=== PATIENT | male | born 1960 | race Two or more races ===

== ENCOUNTER 2024-12-14 13:05 | Inpatient (IN) | payer MEDICARE, OTHER ==
[~2024-12-14] VITALS: Ht 182.9 cm; Wt 115.2 kg
--- NOTE | 2024-12-14 13:28 | ECG ---
[facility] Test Date: 2024-12-14 Test Time: 13:27:03 Pat Name: NIMESH CALDERÓN Department: ER Room: 0273T Gender: M Rn Community: [place] : 1960 Requested By: IVETH DEL ROSARIO Order Number: [id number] Reading MD: Sang Iriazrry Measurements Intervals [place] Rate: 61 P: -18 MN: 152 QRS: -2 QRSD: 120 T: 65 QT: 434 QTc: 438 Interpretive Statements Sinus rhythm Nonspecific intraventricular conduction delay Inferior infarct, old Abnormal lateral Q waves Electronically Signed On 12-17-2024 20:55:54 PDT by Sang Irizarry Please click the below link to view image of tracing.
--- NOTE | 2024-12-14 13:41 | ED.PDOC ---
SOB-HPI HPI Comments 64 y/o M, with a history of AFIB on Eliquis, asthma, CKF, DM, HTN, and aortic heart valve replacement, presents with c/o intermittent shortness of breath for the past 2 hours and chest heaviness. Patient reports on sudden and unprovoked onset of symptom. He denies any palpitations, cough, wheezing, congestion, fever, chills, or other associated symptoms or modifying factors, currently. Patient further informs of recent AFIB diagnosis and need for a pacemaker following recent hospital visit in [place], [place], and another facility in [place], [place] 2x days ago and 1x week ago, respectively. States he does not feel comfortable going home. Chief Complaint: Shortness of Breath Time Seen by MD: 13:25 Primary Care Provider: OUT OF AREA Reviewed notes: Nurses Notes, Medications, Allergies Information Source: Patient Mode of Arrival: Ambulatory Severity: Moderate Timing: Hours Duration: Intermittent Context: Spontaneous Onset Past Medical History PAST MEDICAL HISTORY: AFIB (on Eliquis ), Asthma, CKF, DM, HTN Surgical History (Other): aortic heart valve replacement left-knee surgery All Other Systems: Reviewed and Negative (Comprehensive systems review obtained and negative except for what is stated in the HPI.) Physical Exam General Appearance: No Apparent Distress, Normal HEENT: Normal ENT Inspection, Pharynx Normal, TMs Normal Neck: Full Range of Motion, Non-Tender, Normal, Normal Inspection Respiratory: Chest Non-Tender, Lungs Clear, No Accessory Muscle Use, No Respiratory Distress, Normal Breath Sounds Cardiovascular: No Edema, No JVD, No Murmur, No Gallop, Normal Peripheral Pulses, Regular Rate/Rhythm Breast Exam: Deferred Gastrointestinal: No Organomegaly, Non Tender, No Pulsatile Mass, Normal Bowel Sounds, Soft Genitalia: Deferred Pelvic: Deferred Rectal: Deferred Extremities: No calf tenderness, Normal capillary refill, Normal inspection, Normal range of motion, Non-tender, No pedal edema Musculoskeletal : Apperance: Normal Neurologic: Alert, pop singer II-XII nml as Tested, No Motor Deficits, Normal Affect, Normal Mood, No Sensory Deficits Cerebellar Function: NOT DONE Reflexes: NOT DONE Skin: Dry, Normal Color, Warm Lymphatic: No Adenopathy EKG EKG : Pulse Rate (adult): 61 [place]: Normal Cardiac Rhythm: NSR Block: None Hypertrophy: None ST: Normal Was a procedure done? Was a procedure done?: No Differential Dx Differential Diagnosis: Anxiety, Asthma, Bronchitis, Myocardial infarction, Pneumonia, Pulmonary Embolism, URI, Other (viral syndrome) X-Ray, Labs, Meds, VS Vital Signs Date Time Temp Pulse Resp B/P (MAP) Pulse Ox O2 Delivery O2 Flow Rate FiO2 12/14/24 13:41 61 12/14/24 13:27 61 12/14/24 13:20 98.3 62 16 109/69 (82) 95 98.3 Lab Test 12/14/24 13:31 Range/Units White Blood Count 9.0 4.4-10.8 10^3/uL Red Blood Count 5.41 4.5-5.90 10^6/uL Hemoglobin 15.3 13.5-17.5 g/dL Hematocrit 47.7 41.0-53.0 % Mean Corpuscular Volume 88.2 80.0-100.0 fL Mean Corpuscular Hemoglobin 28.3 28.0-32.0 pg Mean Corpuscular Hemoglobin Concent 32.1 32.0-36.0 g/dL Red Cell Distribution Width 15.6 H 11.8-14.3 % Platelet Count 147 140-450 10^3/uL Mean Platelet Volume 8.5 6.9-10.8 fL Neutrophils (%) (Auto) 65.2 37.0-80.0 % Lymphocytes (%) (Auto) 26.3 10.0-50.0 % Monocytes (%) (Auto) 7.2 0.0-12.0 % Eosinophils (%) (Auto) 0.8 0.0-7.0 % Basophils (%) (Auto) 0.5 0.0-2.0 % Neutrophils # (Auto) 5.9 1.6-8.6 10 ^3/uL Lymphocytes # (Auto) 2.4 0.4-5.4 10 ^3/uL Monocytes # (Auto) 0.6 0-1.3 10 ^3/uL Eosinophils # (Auto) 0.1 0-0.8 10 ^3/uL Basophils # (Auto) 0 0-0.2 10 ^3/uL Nucleated Red Blood Cells 0.2 % Sodium Level 141 136-145 mmol/L Potassium Level 4.2 3.5-5.1 mmol/L Chloride Level 107 98-107 mmol/L Carbon Dioxide Level 27 20-31 mmol/L Anion Gap 7 5-15 Blood Urea Nitrogen 19 9-23 mg/dL Creatinine 1.12 0.700-1.30 mg/dL Glomerular Filtration Rate Calc 72 >90 mL/min BUN/Creatinine Ratio 17.0 10.0-20.0 Serum Glucose 186 H 74-106 mg/dL Calcium Level 10.0 8.7-10.4 mg/dL Phosphorus Level 3.2 2.4-5.1 mg/dL Magnesium Level 2.1 1.6-2.6 mg/dL Troponin I High Sensitivity 13 </=54 ng/L B-Type Natriuretic Peptide 79.48 0-100 pg/mL [place] [id number] Ph: [phone] DIAGNOSTIC IMAGING Diagnostic Imaging Report : [id number] Signed PATIENT: NIMESH CALDERÓN ACCT: [id number] UNIT: [id number] : 1960 LOC: ER ROOM / BED: / AGE / SEX: 64 / M ADM STATUS: REG ER SERVICE 1325 ORDERING PHYSICIAN: IVETH DEL ROSARIO MD PROCEDURE(s): CXR1 - CHEST XRAY 1 VIEW REASON: sob ORDER NUMBER(s): [id number], ACCESSION NUMBER(s): [id number] EXAM: XR Chest, 1 View CLINICAL INDICATION: sob TECHNIQUE: Frontal view of the chest. COMPARISON: None FINDINGS: LUNGS AND PLEURAL SPACES: Unremarkable. No consolidation. No pneumothorax. HEART: Unremarkable. No cardiomegaly. MEDIASTINUM: Unremarkable. Normal mediastinal contour. BONES/JOINTS: Unremarkable. No acute fracture. OTHER FINDINGS: . None. IMPRESSION: No acute cardiopulmonary process. ATED BY: NIMESH BROWNE MD DICTATED DATE/TIME: 12/14/241348 SIGNED BY: NIMESH BROWNE MD SIGNED DATE/TIME: 12/14/241348 CC: X-Ray, Labs, Meds, VS Comment 64-year-old male with a history of aortic valve replacement and additional cardiac history here today with complaints of shortness of breath and chest heaviness. Vital signs stable, afebrile. Physical exam as above without any acute findings. Labs overall reassuring, normal troponin and BNP. Chest x-ray without evidence of acute findings. Patient was states that he thinks that he was recently told he has an issue with his heart valve but is unable to explain exactly what that issue is. Patient with a heart score of five. D-dimer pending. Plan made to admit the hospital for further cardiac risk stratification, consideration of cardiac echo, and inpatient cardiology consultation. Images Reviewed?: Images reviewed and evaluated by me Time of 1ST Reevaluation: 13:55 Reevaluation 1ST: Unchanged Patient Education/Counseling: Diagnosis, Treatment Family Education/Counseling: No Family Present Departure 1 Departure Time of Disposition: 16:17 Impression: Primary Impression: Shortness of breath Additional Impressions: Chest heaviness History of aortic valve replacement History of atrial fibrillation Disposition: 02 SHORT TERM HOSPITAL Admit to: [facility] Condition: Guarded Critical Care Note Critical Care Time?: No Stability Stability form required: No Heart Score Heart Score: Heart Score Response (Comments) Value History Moderate Suspicious 1 EKG Normal 0 Age >65 2 Risk Factors >3 or Hx ASHD 2 Troponin Normal limit 0 Total 5 I personally scribed for IVETH DEL ROSARIO MD ([email or web address]) on 12/14/24 at 13:41. Electronically submitted by Clayton Smith ([email or web address]). I personally scribed for IVETH DEL ROSARIO MD ([email or web address]) on 12/14/24 at 15:29. Electronically submitted by Clayton Smith ([email or web address]). IVETH DEL ROSARIO MD Dec 14, 2024 13:41
--- NOTE | 2024-12-14 13:51 | DVH ---
EXAM: XR Chest, 1 View CLINICAL INDICATION: sob TECHNIQUE: Frontal view of the chest. COMPARISON: None FINDINGS: LUNGS AND PLEURAL SPACES: Unremarkable. No consolidation. No pneumothorax. HEART: Unremarkable. No cardiomegaly. MEDIASTINUM: Unremarkable. Normal mediastinal contour. BONES/JOINTS: Unremarkable. No acute fracture. OTHER FINDINGS: . None. IMPRESSION: No acute cardiopulmonary process.
[2024-12-14 13:53] LABS: Basophils # (auto) 0 10 ^3/uL (0-0.2); Basophils % (auto) 0.5 % (0.0-2.0); Eosinophils # (auto) 0.1 10 ^3/uL (0-0.8); Eosinophils % (auto) 0.8 % (0.0-7.0); Hematocrit 47.7 % (41.0-53.0); Hemoglobin 15.3 g/dL (13.5-17.5); Lymphocytes # (auto) 2.4 10 ^3/uL (0.4-5.4); Lymphocytes % (auto) 26.3 % (10.0-50.0); Mean Corpuscular Hemoglobin 28.3 pg (28.0-32.0); Mean Corpuscular Hgb Conc. 32.1 g/dL (32.0-36.0); Mean Corpuscular Volume 88.2 fL (80.0-100.0); Monocytes # (auto) 0.6 10 ^3/uL (0-1.3); Monocytes % (auto) 7.2 % (0.0-12.0); Neutrophils # (auto) 5.9 10 ^3/uL (1.6-8.6); Neutrophils % (auto) 65.2 % (37.0-80.0); Nucleated Red Blood Cells % 0.2 %; Platelet Count (auto) 147 10^3/uL (140-450); Red Blood Cells 5.41 10^6/uL (4.5-5.90); Red Cell Distribution Width 15.6 % (11.8-14.3)
[2024-12-14 14:45] LABS: Chloride 107 mmol/L (98-107); Glucose 186 mg/dL (74-106); Phosphorus 3.2 mg/dL (2.4-5.1); Potassium 4.2 mmol/L (3.5-5.1); Sodium 141 mmol/L (136-145)
[2024-12-14 14:53] LABS: Anion Gap 7 (5-15); Blood Urea Nitrogen 19 mg/dL (9-23); Carbon Dioxide 27 mmol/L (20-31)
[2024-12-14] MEDS ORDERED: ONDANSETRON HCL 4 MG/2 ML VIAL IV PRN (21:30)
[2024-12-14] MEDS ORDERED: DOCUSATE SOD 100 MG CAP PO PRN (21:30)
[2024-12-14] MEDS ORDERED: ACETAMINOPHEN 325 MG TAB PO PRN (21:30)
[2024-12-14] MEDS ORDERED: MORPHINE SULFATE INJ 2 MG/ml SYRG IV PRN ×2 (21:30)
[2024-12-14] MEDS ORDERED: NITROGLYCERIN 0.4 MG SL TAB SL PRN (21:30)
[2024-12-14 21:41] VITALS: BP 109/69; PULSE 61; RESP 18; O2SAT 95
--- NOTE | 2024-12-14 21:43 | DVHHPRES ---
History of Present Illness Resident Creating Document: LEON MORSE History of Present Illness Carmelo Manuel is a 64-year-old male patient who presents to the ED with chief complaint of intermittent dyspnea in functional class IV which started today at noon. Patient also complaint of left arm pain in bilateral hand numbness for the past few weeks and also complains of limiting functional class for the past two months (he says that he can not move alone anymore). He has been visiting the ED in multiple occasions, and was going to be evaluated by a power sewing machine operator this , but due to his recurrent symptoms, it prompted his visit to the ED today. In the ED patient presented EKG with no ST elevation, sinus rhythm, with nonspecific intraventricular conduction delay, troponin x3 negative. Denies palpitation, syncope, chest pain, nausea, vomiting, diarrhea, abdominal pain, constipation, bleeding, sick contacts, recent travel and other motor or sensory deficits. Past medical history: Hypertension, dyslipidemia, diabetes insulin dependent, paroxysmal atrial fibrillation (chads Vasc 3/has bled 2), biological aortic valve replacement in 2017, chronic kidney disease stage 2, asthma Surgical history: 2017 biological aortic valve replacement, coronary angiography in 2017 with no lesions per patient Family history: Father of IA, mother of cancer (unknown type) Social history: Lives in [place] alone. Ex ethanol abuse, stopped three years ago. Denies current tobacco, alcohol and other drug abuse. Allergies: Penicillin Home medication: Apixaban 5 mg p.o. b.i.d., metoprolol 25 mg p.o. b.i.d., atorvastatin 40 mg p.o. daily, doxazosin, montelukast 10 mg p.o. daily, omeprazole 40 mg p.o. daily, enalapril 20 mg p.o. b.i.d., Jardiance 10 mg p.o. daily Patient seen and examined at bedside. Currently has no new complaints. Past Medical History Per HPI Past Surgical History Per HPI Family History Per HPI Past Social History Per HPI Review of Systems Review of Systems Per HPI Allergies: Coded Allergies: Penicillins (Verified Allergy, Severe, 12/14/24) Medications Current Medications Medications Dose Ordered Sig/Casey Route Start Time Stop Time Status Last Admin Dose Admin Acetaminophen 650 mg Q6HP PRN PO 12/14/24 21:30 Ondansetron HCl 4 mg Q4HP PRN IV 12/14/24 21:30 Morphine Sulfate 2 mg Q4HPRN PRN IV 12/14/24 21:30 Nitroglycerin 0.4 mg Q5MINP PRN SL 12/14/24 21:30 Morphine Sulfate 2 mg Q30M PRN IV 12/14/24 21:30 Montelukast Sodium 10 mg HS PO 12/14/24 22:00 Enoxaparin Sodium 110 mg Q12HR SC 12/14/24 22:00 Atorvastatin Calcium 40 mg HS PO 12/14/24 22:00 Docusate Sodium 200 mg BIDPRN PRN PO 12/14/24 21:30 Pantoprazole Sodium 40 mg DAILY IV 12/15/24 10:00 Enalapril Maleate 20 mg DAILY PO 12/15/24 10:00 Metoprolol Tartrate 50 mg BID PO 12/14/24 22:00 Doxazosin Mesylate 2 mg HS PO 12/14/24 22:00 Empaglifozin 10 mg DAILY PO 12/15/24 10:00 Aspirin 81 mg DAILY PO 12/15/24 10:00 Ipratropium [place] 0.5 mg Q6HWA NEB 12/15/24 06:00 Levalbuterol HCl 0.625 mg Q6HR NEB 12/15/24 00:00 Exam Vital Signs Vital Signs Date Time Temp Pulse Resp B/P (MAP) Pulse Ox O2 Delivery O2 Flow Rate FiO2 12/14/24 13:41 61 12/14/24 13:20 98.3 16 109/69 (82) 95 98.3 Exam Patient lying in bed, in no acute distress General: Lucid, afebrile, mucosae are moist Cardiovascular: Normal S1 and S2. Late peaking crescendo decrescendo systolic murmur intensity 4/6. No gallops or rubs Respiratory: Normal ventilation mechanics. Clear lung sounds on auscultation Abdomen: Soft, nontender, no organomegaly, normal bowel sounds MSK/skin: Mobilizes 4 limbs. Skin is dry and warm Neurological: Oriented in 3 spheres. No motor no sensitive deficits. Pupils are isocoric and reactive Labs/Xrays Labs Test 12/14/24 17:14 12/14/24 13:31 Range/Units POC Glucose 134 H 70-106 mg/dl White Blood Count 9.0 4.4-10.8 10^3/uL Red Blood Count 5.41 4.5-5.90 10^6/uL Hemoglobin 15.3 13.5-17.5 g/dL Hematocrit 47.7 41.0-53.0 % Mean Corpuscular Volume 88.2 80.0-100.0 fL Mean Corpuscular Hemoglobin 28.3 28.0-32.0 pg Mean Corpuscular Hemoglobin Concent 32.1 32.0-36.0 g/dL Red Cell Distribution Width 15.6 H 11.8-14.3 % Platelet Count 147 140-450 10^3/uL Mean Platelet Volume 8.5 6.9-10.8 fL Neutrophils (%) (Auto) 65.2 37.0-80.0 % Lymphocytes (%) (Auto) 26.3 10.0-50.0 % Monocytes (%) (Auto) 7.2 0.0-12.0 % Eosinophils (%) (Auto) 0.8 0.0-7.0 % Basophils (%) (Auto) 0.5 0.0-2.0 % Neutrophils # (Auto) 5.9 1.6-8.6 10 ^3/uL Lymphocytes # (Auto) 2.4 0.4-5.4 10 ^3/uL Monocytes # (Auto) 0.6 0-1.3 10 ^3/uL Eosinophils # (Auto) 0.1 0-0.8 10 ^3/uL Basophils # (Auto) 0 0-0.2 10 ^3/uL Nucleated Red Blood Cells 0.2 % D-Dimer, Quantitative 0.30 0.0-0.49 mg/L FEU Sodium Level 141 136-145 mmol/L Potassium Level 4.2 3.5-5.1 mmol/L Chloride Level 107 98-107 mmol/L Carbon Dioxide Level 27 20-31 mmol/L Anion Gap 7 5-15 Blood Urea Nitrogen 19 9-23 mg/dL Creatinine 1.12 0.700-1.30 mg/dL Glomerular Filtration Rate Calc 72 >90 mL/min BUN/Creatinine Ratio 17.0 10.0-20.0 Serum Glucose 186 H 74-106 mg/dL Calcium Level 10.0 8.7-10.4 mg/dL Phosphorus Level 3.2 2.4-5.1 mg/dL Magnesium Level 2.1 1.6-2.6 mg/dL Troponin I High Sensitivity 13 </=54 ng/L B-Type Natriuretic Peptide 79.48 0-100 pg/mL Assessment/Plan Assessment/Plan Assessment: Unstable angina (MARY: 2, IFRAH: 95 points) Questionable symptomatic severe aortic stenosis Paroxysmal atrial fibrillation (chads Vasc 3/has bled 2) with secondary hypercoagulability state Chronic kidney disease stage 2 Asthma Hypertension Dyslipidemia Diabetes insulin dependent - uncontrolled (hemoglobin A1c 7.6%) History of biological aortic valve replacement Plan: Dyspnea is equivalent of angina. Patient's last coronary angiography was in 2017. On physical examination patient who presents crescendo decrescendo late peaking systolic murmur, differential diagnosis is symptomatic severe aortic stenosis Ordered echocardiogram. Consulted cardiology for eventual coronary angiography Patient is currently under aspirin, therapeutic enoxaparin and statins Goals of care discussed with patient for over 18 minutes: Full code status Discussed plan with Dr. Durán, patient and nurses: Patient has persistent symptoms for the past two months, has been worsening in the past weeks, was goi ng to consult power sewing machine operator as outpatient but due to persistent symptoms prompted his visit. Have ordered echocardiogram to rule out severe valvulopathy. If echocardiogram shows no severe valve disease, patient may benefit from eventual stress test versus left heart catheterization. Consulted Cardiology. Plan discussed with: Patient, Other (Nurses) My Orders Orders - LEON MORSE RESIDENT Procedure Category Date Status Time Admit ADMIT 12/14/24 Transmitted 21:26 Code Status CODE 12/14/24 Transmitted 21:26 Vital Signs HIPOLITO 12/14/24 In Process 21:26 Review Orders With HIPOL[place]O 12/14/24 In Process Adm.Md 21:26 Acetaminophen Tablet PHA 12/14/24 In Process (Tylenol Tablet) 21:30 Notify Md Of Changes [place]O 12/14/24 In Process From Base 21:26 Advance Directive [place] 12/14/24 In Process 21:26 Echo 2d Mode Cardiac US 12/14/24 Logged DOP 21:26 Urinalysis LAB 12/14/24 Logged 21:26 Lipid Panel LAB 12/14/24 Logged 21:26 Patient Condition ORDERS 12/14/24 Transmitted 21:26 Allergies H[place]OL[place]O 12/14/24 In Process 21:26 Ondansetron Hcl PHA 12/14/24 In Process (Zofran) 21:30 Drug Screen LAB 12/14/24 Logged 21:26 Hemoglobin A1c LAB 12/14/24 Logged 21:26 Morphine Sulfate PHA 12/14/24 In Process Injection 21:30 Nitroglycerin PHA 12/14/24 In Process Sublingual (Ntrostat 21:30 Morphine Sulfate PHA 12/14/24 In Process Injection 21:30 Oxygen By Nasal RT 12/14/24 Transmitted Cannula 21:26 Stat Ekg For Chest HIPOL[place]O 12/14/24 In Process Pain 21:26 Notify Md Of Changes H[place]O 12/14/24 In Process From Base 21:26 Hay Rake Operator For HIPOL[facility]O 12/14/24 In Process 24 Hours 21:26 Emergency Dysrhythmia [place] 12/14/24 In Process Protocol 21:26 Rhythm Strips Once [place] 12/14/24 In Process Every Shift 21:26 Montelukast Tablet PHA 12/14/24 In Process (Singulair Tablet) 22:00 Enoxaparin Sodium PHA 12/14/24 In Process (Lovenox) 22:00 Atorvastatin (Lipitor) PHA 12/14/24 In Process 22:00 Docusate Sodium PHA 12/14/24 In Process Capsule (Colace 21:30 Pantoprazole PHA 12/15/24 In Process (Protonix) 10:00 Enalapril Tablet PHA 12/15/24 In Process (Vasotec Tablet) 10:00 Metoprolol Tartrate PHA 12/14/24 In Process Tablet (Lopressor Ta 22:00 Doxazosin Mesyl PHA 12/14/24 In Process Tablet (Cardura 22:00 Empagliflozin PHA 12/15/24 In Process (Jardiance) 10:00 Aspirin Tablet PHA 12/15/24 In Process 10:00 Ipratropium Medneb PHA 12/15/24 In Process (Atrovent Medneb) 06:00 Levalbuterol Hcl PHA 12/15/24 In Process (Xopenex Medneb) 00:00 * Cardiology Consult CONS 12/14/24 Transmitted 21:26 Consistent DIET 12/15/24 Transmitted Carb(Ccho)Diabetes Breakfast Date of Service: Dec 14, 2024 Billing Provider: JADA DURÁN MD Common Visit Codes: 47584-[id number] INP/OBS CARE (HIGH) Secondary Visit Codes: 26824-[id number] CARE PLAN 30 MINUTES ETCHEGALIREZAEN,LEON RESIDENT Dec 14, 2024 21:43 JADA DURÁN MD Dec 15, 2024 18:21
[2024-12-14 22:52] LABS: Triglycerides 62 mg/dL (< 150)
[2024-12-14 22:53] LABS: LDL Cholesterol 55 mg/dL (< 100)
[2024-12-14 22:54] LABS: Cholesterol 114 mg/dL (< 200); HDL Cholesterol 40 mg/dL (40-59)
[2024-12-14 23:11] VITALS: PULSE 79; RESP 19; O2SAT 97
[2024-12-14] MEDS: METOPROLOL TARTRATE 50 MG TAB PO SCH (23:24)
[2024-12-14] MEDS: ENOXAPARIN SOD 100 MG/1 ML SYRINGE SC SCH (23:24)
[2024-12-14] MEDS: MONTELUKAST SODIUM 10 MG TAB PO SCH (23:24)
[2024-12-14] MEDS: ATORVASTATIN 20 MG TAB PO SCH (23:24)
[2024-12-14] MEDS ORDERED: DEXTROSE (50%) 50ML SYRG IV PRN (23:30)
[2024-12-14] MEDS: ASPirin 325 MG TAB PO ONE (23:40)
[2024-12-14] MEDS: PANTOPRAZOLE 40 MG/10 ML VIAL INJ IV ONE (23:40)
[2024-12-14] MEDS: DOXAZOSIN MESYL 2 MG TAB PO SCH (23:41)
[2024-12-15] VITALS (9 sets, daily range): BP systolic 122; BP diastolic 70; PULSE 61–86; RESP 12–20; TEMP 98; O2SAT 93–100
[2024-12-15] MEDS ORDERED: LEVALBUTEROL HCL 1.25 MG/3 ML NEB NEB SCH
[2024-12-15 05:19] LABS: Basophils # (auto) 0 10 ^3/uL (0-0.2); Basophils % (auto) 0.4 % (0.0-2.0); Eosinophils # (auto) 0 10 ^3/uL (0-0.8); Eosinophils % (auto) 0.4 % (0.0-7.0); Hematocrit 44.6 % (41.0-53.0); Hemoglobin 14.9 g/dL (13.5-17.5); Lymphocytes # (auto) 2.6 10 ^3/uL (0.4-5.4); Lymphocytes % (auto) 28.8 % (10.0-50.0); Mean Corpuscular Hemoglobin 29.1 pg (28.0-32.0); Mean Corpuscular Hgb Conc. 33.3 g/dL (32.0-36.0); Mean Corpuscular Volume 87.4 fL (80.0-100.0); Monocytes # (auto) 0.7 10 ^3/uL (0-1.3); Monocytes % (auto) 8.2 % (0.0-12.0); Neutrophils # (auto) 5.6 10 ^3/uL (1.6-8.6); Neutrophils % (auto) 62.2 % (37.0-80.0); Nucleated Red Blood Cells % 0.1 %; Platelet Count (auto) 140 10^3/uL (140-450); Red Cell Distribution Width 15.9 % (11.8-14.3)
[2024-12-15 05:38] LABS: Alanine Aminotransferase 21 U/L (7-40); Albumin 4.3 g/dL (3.2-4.8); Anion Gap 9 (5-15); BUN/Creatinine Ratio 17.7 (10.0-20.0); Bilirubin, Total 0.6 mg/dL (0.2-1.0); Blood Urea Nitrogen 20 mg/dL (9-23); Carbon Dioxide 24 mmol/L (20-31); Chloride 107 mmol/L (98-107); Potassium 3.6 mmol/L (3.5-5.1); Sodium 140 mmol/L (136-145)
[2024-12-15 05:40] LABS: Alkaline Phosphatase 152 U/L (46-116); Aspartate Aminotransferase 13 U/L (13-40); Glucose 163 mg/dL (74-106)
[2024-12-15 06:08] LABS: Urine Bacteria None Seen /hpf (None Seen)
[2024-12-15 06:43] LABS: Amphetamine Screen, Urine Neg (NEGATIVE); Barbiturate Scree,Urine Neg (NEGATIVE); Benzodiazephine Screen, Urine Neg (NEGATIVE); Cannabinoid Screen, Urine Neg (NEGATIVE); Cocaine Screen, Urine Neg (NEGATIVE); Opiate Scree,Urine Neg (NEGATIVE); Phencyclidine Screen, Urine Neg (NEGATIVE)
[2024-12-15] MEDS: IPRATROPIUM BROM 0.5 MG/2.5ML INH SOL NEB SCH (06:46)
[2024-12-15] MEDS: LEVALBUTEROL HCL 1.25 MG/3 ML NEB NEB SCH (06:46)
[2024-12-15 06:52] LABS: Urine Blood Negative /uL (Negative); Urine Clarity Clear (Clear); Urine Color Light-Yellow (Yellow); Urine Protein, UAD Negative (Negative); Urine Specific Gravity 1.032 (1.001-1.035); Urine Squamous Epithelial Cell FEW /hpf (<5); Urine Urobilinogen Normal (Negative); Urine WBC 2 /HPF (0-3); Urine pH 5.5 (5.0-9.0)
[2024-12-15] MEDS: InsuLIN REG 1unit/0.01ml Soln (100units/ml) SC SCH (06:59)
[2024-12-15] MEDS: ACCU-CHEK COMFORT CURVE STRIP VI SCH (07:00)
[2024-12-15] MEDS: ASPirin 81 mg TAB PO SCH (09:57)
[2024-12-15] MEDS: PANTOPRAZOLE 40 MG/10 ML VIAL INJ IV SCH (09:57)
[2024-12-15] MEDS: EMPAGLIFLOZIN 10 MG TAB PO SCH (09:57)
[2024-12-15] MEDS: ENALAPRIL MALEATE 10 MG TAB PO SCH (09:59)
--- NOTE | 2024-12-15 15:51 | DVHPN2 ---
Progress Note - Dictate Date Seen: Dec 15, 2024 Medical Necessity Reason Pt with a Central, PICC or Fol: No vital signs Vital Sign Date Time Temp Pulse Resp B/P (MAP) Pulse Ox O2 Delivery O2 Flow Rate FiO2 12/15/24 14:00 98.5 66 12 112/53 (72) 95 98.5 12/15/24 08:00 Room Air* 0 21 medications Current Medications Medications Dose Ordered Sig/Casey Route Start Time Stop Time Status Last Admin Dose Admin Acetaminophen 650 mg Q6HP PRN PO 12/14/24 21:30 Ondansetron HCl 4 mg Q4HP PRN IV 12/14/24 21:30 Morphine Sulfate 2 mg Q4HPRN PRN IV 12/14/24 21:30 Nitroglycerin 0.4 mg Q5MINP PRN SL 12/14/24 21:30 Morphine Sulfate 2 mg Q30M PRN IV 12/14/24 21:30 Montelukast Sodium 10 mg HS PO 12/14/24 22:00 12/14/24 23:24 10 MG Atorvastatin Calcium 40 mg HS PO 12/14/24 22:00 12/14/24 23:24 40 MG Docusate Sodium 200 mg BIDPRN PRN PO 12/14/24 21:30 Pantoprazole Sodium 40 mg DAILY IV 12/15/24 10:00 12/15/24 09:57 40 MG Enalapril Maleate 20 mg DAILY PO 12/15/24 10:00 12/15/24 09:59 20 MG Metoprolol Tartrate 50 mg BID PO 12/14/24 22:00 12/15/24 09:58 50 MG Doxazosin Mesylate 2 mg HS PO 12/14/24 22:00 Empaglifozin 10 mg DAILY PO 12/15/24 10:00 12/15/24 09:57 10 MG Aspirin 81 mg DAILY PO 12/15/24 10:00 12/15/24 09:57 81 MG Ipratropium [place] 0.5 mg Q6HWA NEB 12/15/24 06:00 12/15/24 12:51 0.5 MG Levalbuterol HCl 0.625 mg Q6HWA NEB 12/15/24 06:00 12/15/24 12:51 0.625 MG Diagnostic Test (Pha) 1 strip ACHS 12/15/24 07:00 4/14/25 12:22 1 STRIP Insulin Human Regular ACHS SC 12/15/24 07:00 12/15/24 12:24 3 UNITS Dextrose 50 ml UD PRN IV 12/14/24 23:30 Enoxaparin Sodium 110 mg Q12HR SC 12/15/24 22:00 objective General Appearance: alert, no distress HEENT: EOMI, PERRLA, normal external inspect of ears, no icterus, no nasal drainage Neck: no carotid bruit, no jugular venous distention (JVD), no lymphadenopathy Chest: normal thorax Respiratory: clear to auscultation, normal air movement Cardiovascular: regular rate and rhythm, no diastolic murmur, no jugular venous distention (JVD), no rub, no systolic murmur Abdominal: soft, no hepatomegaly, no mass, no splenomegaly, no tenderness Genitourinary: grossly normal external Musculoskeletal: no joint tenderness, no swelling Extremities: normal pulses, no calf tenderness, no clubbing, no cyanosis, no edema Skin: no bruising, no jaundice, no rash Neurological: alert, No focal deficit laboratory and microbiology Laboratory Tests 12/15/24 05:00 Test 12/15/24 05:00 Range/Units Serum Glucose 163 H 74-106 mg/dL Problem List 1. Unstable angina Monitor, cardiology consult 2. DM II & hyperglycemia Monitor, insulin ss 3. Chronic kidney disease stage 2 Monitor 4. Paroxysmal Afib Monitor, full dose Lovenox, cardiology consult 5. Hx biological aortic valve replacement 2011 Monitor 6. Obesity Monitor, PPI Assessment/Plan Subjective: Patient is awake and alert. Objective: Patient was admitted for unstable angina. Troponin levels are negative. Plan: Cardiology consult. Monitor EKG. Continue home medications. Plan discussed with: Patient, Other SAMEER SANDOVAL NP Dec 15, 2024 15:51
[2024-12-15] MEDS: ENOXAPARIN SOD 120 MG/0.8 ML SYRINGE SC SCH (21:49)
[2024-12-16] VITALS (14 sets, daily range): BP systolic 102–117; BP diastolic 51–61; PULSE 55–84; RESP 13–20; TEMP 97.6–98.6; O2SAT 93–100
[2024-12-16] MEDS ORDERED: ENAL1TAB42 PO (00:07)
[2024-12-16] MEDS ORDERED: DOXA1TAB42 PO (00:07)
[2024-12-16] MEDS ORDERED: DOXA2TAB84 PO (00:07)
[2024-12-16] MEDS ORDERED: MET25T PO (00:07)
[2024-12-16] MEDS ORDERED: MONT-8 PO (00:07)
[2024-12-16] MEDS ORDERED: OMEP20TA PO (00:07)
--- NOTE | 2024-12-16 10:18 | DVHINCON2 ---
Date of service: Dec 16, 2024 History of Present Illness HPI Patient is a 64 year old male who presented with shortness of breath and some chest tightness. He usually goes to other facilities for his cardiac problems. Is known to have aortic valve replacement many years ago. He does have history of atrial fibrillation for which takes Eliquis as outpatient. Cardiology is involved for cardiac aspects of care. Denies any active chest pain Home Meds Reported Medications Montelukast Sodium (MONTELUKAST SODIUM) 10 Mg Tab, 1 TAB PO DAILY, #30 TAB 5 Refills 12/16/24 Omeprazole (Gnp Omeprazole) 20 Mg Tab, 40 MG PO, TAB 12/16/24 Doxazosin Mesylate (Cardura) 2 Mg Tab, 1 TAB PO QPM, #90 TAB 1 Refill 12/16/24 Enalapril Maleate (Enalapril Maleate) 2.5 Mg Tab, 2.5 MG PO BID for 30 Days, MG 12/16/24 Doxazosin Mesylate (Doxazosin Mesylate) 2 Mg Tab, 1 TAB PO DAILY 12/16/24 Montelukast Sodium (MONTELUKAST SODIUM) 10 Mg Tab, 1 TAB PO DAILY 12/16/24 Metoprolol Tartrate (Lopressor) 25 Mg Tb, 3 TAB PO BID 12/16/24 Past Medical History Others Past medical history includes morbid obesity, CKD, hypertension, hyperlipidemia, diabetes mellitus, valvular heart disease and status post aortic valve replacement (tissue type), paroxysmal AFib and old history of knee surgeries. Patient Family History: FH: MT (myocardial infarction) Smoker: No Hx (Negative) Alocohol: None Drugs: None Review of Systems All Other Systems Fourteen point review of system was performed. Relevant findings as per above and as HPI. Otherwise negative H&P Exam Vital Signs Vital Signs Date Time Temp Pulse Resp B/P (MAP) Pulse Ox O2 Delivery O2 Flow Rate FiO2 12/16/24 08:45 98.0 62 20 102/55 (71) 99 98.0 12/16/24 05:40 Room Air 0.0 12/16/24 05:40 21 General Appeara: Well developed, Obese Eye Exam: bilateral eye PERRL Pulmonary/Respiratory: Normal inspection Cardiovascular/Chest: Normal inspection, Regular rate, Systolic murmur Peripheral Pulses: 2+ carotid (R), 2+ carotid (L), 2+ femoral (R), 2+ femoral (L), 2+ dorsalis pedis (R), 2+ dorsalis pedis (L), 2+ Radial (R), 2+ Radial (L) Abdominal Exam: Normal bowel sounds, Soft Neuro/Mental St: Alert, Oriented Appearance: Appropriate appearance Eye contact/ Speech: Cooperative Labs/Xrays Labs Test 12/16/24 06:05 12/15/24 05:00 12/14/24 22:04 12/14/24 13:31 Range/Units POC Glucose 122 H 70-106 mg/dl White Blood Count 9.0 4.4-10.8 10^3/uL Red Blood Count 5.10 4.5-5.90 10^6/uL Hemoglobin 14.9 13.5-17.5 g/dL Hematocrit 44.6 41.0-53.0 % Mean Corpuscular Volume 87.4 80.0-100.0 fL Mean Corpuscular Hemoglobin 29.1 28.0-32.0 pg Mean Corpuscular Hemoglobin Concent 33.3 32.0-36.0 g/dL Red Cell Distribution Width 15.9 H 11.8-14.3 % Platelet Count 140 140-450 10^3/uL Mean Platelet Volume 8.3 6.9-10.8 fL Neutrophils (%) (Auto) 62.2 37.0-80.0 % Lymphocytes (%) (Auto) 28.8 10.0-50.0 % Monocytes (%) (Auto) 8.2 0.0-12.0 % Eosinophils (%) (Auto) 0.4 0.0-7.0 % Basophils (%) (Auto) 0.4 0.0-2.0 % Neutrophils # (Auto) 5.6 1.6-8.6 10 ^3/uL Lymphocytes # (Auto) 2.6 0.4-5.4 10 ^3/uL Monocytes # (Auto) 0.7 0-1.3 10 ^3/uL Eosinophils # (Auto) 0 0-0.8 10 ^3/uL Basophils # (Auto) 0 0-0.2 10 ^3/uL Nucleated Red Blood Cells 0.1 % Urine Color Light-yellow Yellow Urine Clarity Clear Clear Urine pH 5.5 5.0-9.0 Urine Specific [place] 1.032 1.001-1.035 Urine Protein Negative Negative Urine Ketones Negative Negative Urine Blood Negative Negative /uL Urine Nitrite Negative Negative Urine Bilirubin Negative Negative Urine Urobilinogen Normal Negative mg/dL Urine Leukocyte Esterase Negative Negative /uL Urine RBC 1 0 - 3 /hpf Urine Microscopic WBC 2 0-3 /HPF Urine Squamous Epithelial Cells Few <5 /hpf Urine Bacteria None seen None Seen /hpf Urine Glucose 4+ H Normal mg/dL Sodium Level 140 136-145 mmol/L Potassium Level 3.6 3.5-5.1 mmol/L Chloride Level 107 98-107 mmol/L Carbon Dioxide Level 24 20-31 mmol/L Anion Gap 9 5-15 Blood Urea Nitrogen 20 9-23 mg/dL Creatinine 1.13 0.700-1.30 mg/dL Glomerular Filtration Rate Calc 72 >90 mL/min BUN/Creatinine Ratio 17.7 10.0-20.0 Serum Glucose 163 H 74-106 mg/dL Calcium Level 10.0 8.7-10.4 mg/dL Total Bilirubin 0.6 0.2-1.0 mg/dL Aspartate Amino Transferase (AST) 13 13-40 U/L Alanine Aminotransferase (ALT) 21 7-40 U/L Alkaline Phosphatase 152 H 46-116 U/L Total Protein 7.0 5.7-8.2 g/dL Albumin 4.3 3.2-4.8 g/dL Urine Opiates Screen Neg NEGATIVE Urine Fentanyl Screen Neg NEGATIVE Urine Barbiturates Screen Neg NEGATIVE Urine Phencyclidine Screen Neg NEGATIVE Urine Amphetamines Screen Neg NEGATIVE Urine Benzodiazepines Screen Neg NEGATIVE Urine Cocaine Screen Neg NEGATIVE Urine Cannabinoids Screen Neg NEGATIVE Hemoglobin A1c 7.6 H <5.7 % A1C Triglycerides Level 62 < 150 mg/dL Cholesterol Level 114 < 200 mg/dL LDL Cholesterol 55 < 100 mg/dL HDL Cholesterol 40 40-59 mg/dL D-Dimer, Quantitative 0.30 0.0-0.49 mg/L FEU Phosphorus Level 3.2 2.4-5.1 mg/dL Magnesium Level 2.1 1.6-2.6 mg/dL Troponin I High Sensitivity 13 </=54 ng/L B-Type Natriuretic Peptide 79.48 0-100 pg/mL Assessment/Plan Plan Patient is a 64 year old male who presented with shortness of breath and some chest tightness. He usually goes to other facilities for his cardiac problems. Is known to have aortic valve replacement many years ago. He does have history of atrial fibrillation for which takes Eliquis as outpatient. Cardiology is involved for cardiac aspects of care. Denies any active chest pain Morbidly obese gentleman. Not in acute distress. Mucosa is pink and wet. There is no goiter. Carotid bruits not heard. Lungs are clear to auscultation. Cardiac: Regular, no thrill/gallop. Systolic murmur 3/6 in apex is heard. Abdomen is soft. Bowel sound is positive. There is no gross mass. Extremities do not reveal edema. Dorsalis pedis is 2+ bilateral Past medical history includes morbid obesity, CKD, hypertension, hyperlipidemia, diabetes mellitus, valvular heart disease and status post aortic valve replaceme nt (tissue type), paroxysmal AFib and old history of knee surgeries. Denies alcohol abuse/substance abuse/smoking D-dimer: 0.3 (within normal limits) Creatinine: 1.12-1.13 Potassium: 4.2-3.6 Troponin (high sensitive) : 13 BNP: 79.48 Urine toxicology was nonrevealing Chest x-ray revealed: IMPRESSION: No acute cardiopulmonary process. EKG reveals sinus rhythm with no ST-T changes Patient is a 64-year-old gentleman who presented with some chest tightness and shortness of breath. He does have old history of heart problem including aortic valve replacement. He usually goes to other facilities. 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 High sensitive troponin was negative. EKGs have been nonrevealing. Presentation is not considered acute coronary syndrome. Atypical chest pain History of paroxysmal AFib Valvular heart disease and status post aortic valve replacement (tissue type) Diabetes mellitus Hypertension Hyperlipidemia Cardiac suggestion for management: Managed on telemetry Follow-up electrolytes and kidney function tests and correct abnormalities Request for echocardiogram If echocardiogram is nonrevealing, outpatient follow-up with patient's own broom maker is advised As the patient has history of paroxysmal AFib, continuation of long-term full anticoagulation is advised Further evaluation and management depends on the above and clinical course Thank you for consultation A total of 75 minutes was spent reviewing the patient record, examining the pat ient, making a diagnostic and therapeutic plan, discussing this plan with medical personnel, following up on diagnostic studies and following the patient for clinical stability excluding any and all procedures. At least 50% of this time was spent in direct, [id number] contact. Thank you for allowing me to participate in this patient's care. Further recommendations will depend on patient's clinical course. Please do not hesitate to contact me if you have any questions or concerns. This medical document was created using electronic medical record system with [employer] computerized dictation system. Although this document has been carefully reviewed, there may still be some phonetic and typographical errors. These areas are purely typographical due to the imperfection of the software programs, and do not reflect any compromise in the patient's medical care. Plan discussed with: Patient, Other (nurse) NIMESH AMARO MD Dec 16, 2024 10:18
--- NOTE | 2024-12-16 10:54 | DVHPN2 ---
Progress Note - Dictate Date Seen: Dec 16, 2024 Medical Necessity Reason Pt with a Central, PICC or Fol: No vital signs Vital Sign Date Time Temp Pulse Resp B/P (MAP) Pulse Ox O2 Delivery O2 Flow Rate FiO2 12/16/24 10:18 62 113/62 12/16/24 08:45 98.0 20 99 98.0 12/16/24 08:00 Room Air* 0 21 Total Intake and Output 12/15/24 12/15/24 12/16/24 15:00 23:00 07:00 Intake Total 300 ml Balance 300 ml medications Current Medications Medications Dose Ordered Sig/Casey Route Start Time Stop Time Status Last Admin Dose Admin Acetaminophen 650 mg Q6HP PRN PO 12/14/24 21:30 Ondansetron HCl 4 mg Q4HP PRN IV 12/14/24 21:30 Morphine Sulfate 2 mg Q4HPRN PRN IV 12/14/24 21:30 Nitroglycerin 0.4 mg Q5MINP PRN SL 12/14/24 21:30 Morphine Sulfate 2 mg Q30M PRN IV 12/14/24 21:30 Montelukast Sodium 10 mg HS PO 12/14/24 22:00 12/15/24 21:39 10 MG Atorvastatin Calcium 40 mg HS PO 12/14/24 22:00 12/15/24 21:39 40 MG Docusate Sodium 200 mg BIDPRN PRN PO 12/14/24 21:30 Pantoprazole Sodium 40 mg DAILY IV 12/15/24 10:00 12/16/24 10:15 40 MG Enalapril Maleate 20 mg DAILY PO 12/15/24 10:00 12/16/24 10:17 20 MG Metoprolol Tartrate 50 mg BID PO 12/14/24 22:00 12/16/24 10:18 50 MG Doxazosin Mesylate 2 mg HS PO 12/14/24 22:00 12/15/24 21:38 2 MG Empaglifozin 10 mg DAILY PO 12/15/24 10:00 12/16/24 10:16 10 MG Aspirin 81 mg DAILY PO 12/15/24 10:00 12/16/24 10:15 81 MG Ipratropium [place] 0.5 mg Q6HWA NEB 12/15/24 06:00 12/16/24 05:40 0.5 MG Levalbuterol HCl 0.625 mg Q6HWA NEB 12/15/24 06:00 12/16/24 05:40 0.625 MG Diagnostic Test (Pha) 1 strip ACHS 12/15/24 07:00 12/16/24 06:05 1 STRIP Insulin Human Regular ACHS SC 12/15/24 07:00 12/15/24 21:41 3 UNITS Dextrose 50 ml UD PRN IV 12/14/24 23:30 Enoxaparin Sodium 110 mg Q12HR SC 12/15/24 22:00 12/16/24 10:18 110 MG objective General Appearance: alert, no distress HEENT: EOMI, PERRLA, normal external inspect of ears, no icterus, no nasal drainage Neck: no carotid bruit, no jugular venous distention (JVD), no lymphadenopathy Chest: normal thorax Respiratory: clear to auscultation, normal air movement Cardiovascular: regular rate and rhythm, no diastolic murmur, no jugular venous distention (JVD), no rub, no systolic murmur Abdominal: soft, no hepatomegaly, no mass, no splenomegaly, no tenderness Genitourinary: grossly normal external Musculoskeletal: no joint tenderness, no swelling Extremities: normal pulses, no calf tenderness, no clubbing, no cyanosis, no edema Skin: no bruising, no jaundice, no rash Neurological: alert, No focal deficit laboratory and microbiology Laboratory Tests 12/15/24 05:00 Test 12/15/24 05:00 Range/Units Serum Glucose 163 H 74-106 mg/dL Problem List 1. Unstable angina Monitor, cardiology consult 2. DM II & hyperglycemia Monitor, insulin ss 3. Chronic kidney disease stage 2 Monitor 4. Paroxysmal Afib Monitor, full dose Lovenox, cardiology consult 5. Hx biological aortic valve replacement 2011 Monitor 6. Obesity Monitor, PPI Assessment/Plan Subjective: Patient is awake and alert. Objective: I spoke with patient and patient's daughter at bedside. Patient was admitted for unstable angina. Troponin levels are negative. Hemoglobin A1c is 7.6. Patient still has occasional chest pain. He does have underlying history of paroxysmal A-fib and has a history of biological aortic valve replacement. Plan: Pending echo. Cardiology evaluation. DC plan once cleared by cardiology. Plan discussed with: Patient, Other SAMEER SANDOVAL NP Dec 16, 2024 10:54
--- NOTE | 2024-12-16 11:02 | DVHSR ---
APPROVED REPORT EXAM: Two-dimensional and M-mode echocardiogram with Doppler and color Doppler. Blood Pressure: 117/59 mmHg INDICATION Unstable angina RISK FACTORS Height: 71, Weight: 246 DIMENSIONS LVDd (3.8-5.7cm)LA (2D)4.0 (1.9-4.0cm)Aortic Root (2.0-3.7cm) EF (%) 60.0 (55-70%)Rt. Atrium4.8 (1.9-4.0cm)Asc. Aorta cm Mitral Valve MitralMitral Stenosis E wave0.81m/sMV Mean GR.mmHg A wave0.89m/sMV Peak GR.mmHg E/A ratio0.92D MVAcm2 DECEL [id number] 1/2 [id number] IVRTmsDop MVA2.69cm2 Aortic Valve Aortic ValveAortic Stenosis V10.99m/Charity Mean GR.16mmHg V22.68m/Charity Peak GR.30mmHg Tricuspid Valve TR Velocity2.62m/s [id number] Other Information Technically limited study due to body habitus and patient position. Conclusion Technically difficult study secondary to poor acoustic windows. Left ventricle: Left ventricle was normal-sized. LVEF was around 60%. Concentric left ventricular hypertrophy was seen. Diastolic function was considered normal for age. No gross wall motion abnorm ality was seen. Right ventricle was mildly dilated with normal systolic function. Both atria were mildly dilated. Aortic valve was not well visualized. Reportedly (clinically) aortic valve replacement has happened. Features are in favor of tissue type prosthetic valve in aortic position. It works properly. Ther e was no aortic insufficiency. There was no gross mismatch/stenosis. There was mild mitral/tricuspid regurgitation. Pulmonary valve was not visualized. Right ventricular systolic pressure was assessed around 36 mm Hg. There was no pericardial effusion.
[2024-12-17] VITALS (9 sets, daily range): BP systolic 120–133; BP diastolic 61–70; PULSE 54–65; RESP 16–20; TEMP 36.8; O2SAT 95–99
--- NOTE | 2024-12-17 06:42 | DVHPN2 ---
Progress Note - Dictate Date Seen: Dec 17, 2024 Medical Necessity Reason Pt with a Central, PICC or Fol: No vital signs Vital Sign Date Time Temp Pulse Resp B/P (MAP) Pulse Ox O2 Delivery O2 Flow Rate FiO2 12/17/24 06:11 54 18 99 12/17/24 06:05 Room Air 0.0 12/17/24 06:05 21 12/17/24 05:00 98.2 120/62 (81) 98.2 Total Intake and Output 12/16/24 12/16/24 12/17/24 15:00 23:00 07:00 Intake Total 600 ml 437 ml Balance 600 ml 437 ml medications Current Medications Medications Dose Ordered Sig/Casey Route Start Time Stop Time Status Last Admin Dose Admin Acetaminophen 650 mg Q6HP PRN PO 12/14/24 21:30 Ondansetron HCl 4 mg Q4HP PRN IV 12/14/24 21:30 Morphine Sulfate 2 mg Q4HPRN PRN IV 12/14/24 21:30 Nitroglycerin 0.4 mg Q5MINP PRN SL 12/14/24 21:30 Morphine Sulfate 2 mg Q30M PRN IV 12/14/24 21:30 Montelukast Sodium 10 mg HS PO 12/14/24 22:00 12/16/24 21:12 10 MG Atorvastatin Calcium 40 mg HS PO 12/14/24 22:00 12/16/24 21:13 40 MG Docusate Sodium 200 mg BIDPRN PRN PO 12/14/24 21:30 Pantoprazole Sodium 40 mg DAILY IV 12/15/24 10:00 12/16/24 10:15 40 MG Enalapril Maleate 20 mg DAILY PO 12/15/24 10:00 12/16/24 10:17 20 MG Metoprolol Tartrate 50 mg BID PO 12/14/24 22:00 12/16/24 10:18 50 MG Doxazosin Mesylate 2 mg HS PO 12/14/24 22:00 12/15/24 21:38 2 MG Empaglifozin 10 mg DAILY PO 12/15/24 10:00 12/16/24 10:16 10 MG Aspirin 81 mg DAILY PO 12/15/24 10:00 12/16/24 10:15 81 MG Ipratropium [place] 0.5 mg Q6HWA NEB 12/15/24 06:00 12/17/24 06:04 0.5 MG Levalbuterol HCl 0.625 mg Q6HWA [facility] 12/15/24 06:00 12/17/24 06:05 0.625 MG Diagnostic Test (Pha) 1 strip ACHS 12/15/24 07:00 12/17/24 06:09 1 STRIP Insulin Human Regular ACHS SC 12/15/24 07:00 12/17/24 06:09 2 UNITS Dextrose 50 ml UD PRN IV 12/14/24 23:30 Enoxaparin Sodium 110 mg Q12HR SC 12/15/24 22:00 12/16/24 21:12 110 MG laboratory and microbiology Laboratory Tests 12/15/24 05:00 Test 12/15/24 05:00 Range/Units Serum Glucose 163 H 74-106 mg/dL Assessment/Plan Patient is a 64 year old male who presented with shortness of breath and some chest tightness. He usually goes to other facilities for his cardiac problems. Is known to have aortic valve replacement many years ago. He does have history of atrial fibrillation for which takes Eliquis as outpatient. Cardiology is involved for cardiac aspects of care. Denies any active chest pain Morbidly obese gentleman. Not in acute distress. Mucosa is pink and wet. There is no goiter. Carotid bruits not heard. Lungs are clear to auscultation. Cardiac: Regular, no thrill/gallop. Systolic murmur 3/6 in apex is heard. Abdomen is soft. Bowel sound is positive. There is no gross mass. Extremities do not reveal edema. Dorsalis pedis is 2+ bilateral Past medical history includes morbid obesity, CKD, hypertension, hyperlipidemia, diabetes mellitus, valvular heart disease and status post aortic valve replacement (tissue type), paroxysmal AFib and old history of knee surgeries. Denies alcohol abuse/substance abuse/smoking D-dimer: 0.3 (within normal limits) Creatinine: 1.12 - 1.13 Potassium: 4.2 - 3.6 Troponin (high sensitive) : 13 BNP: 79.48 Urine toxicology was nonrevealing Chest x-ray revealed: IMPRESSION: No acute cardiopulmonary process. EKG reveals sinus rhythm with no ST-T changes Echocardiogram revealed: Technically difficult study secondary to poor acoustic windows. Left ventricle: Left ventricle was normal-sized. LVEF was around 60%. Concentric left ventricular hypertrophy was seen. Diastolic function was considered normal for age. No gross wall motion abnormality was seen. Right ventricle was mildly dilated with normal systolic function. Both atria were mildly dilated. Aortic valve was not well visualized. Reportedly (clinically) aortic valve replacement has happened. Features are in favor of tissue type prosthetic valve in aortic position. It works properly. There was no aortic insufficiency. There was no gross mismatch/stenosis. There was mild mitral/tricuspid regurgitation. Pulmonary valve was not visualized. Right ventricular systolic pressure was assessed around 36 mm Hg. There was no pericardial effusion. Patient is a 64-year-old gentleman who presented with some chest tightness and shortness of breath. He does have old history of heart problem including aortic valve replacement. He usually goes to other facilities. 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 High sensitive troponin was negative. EKGs have been nonrevealing. Presentation is not considered acute coronary syndrome. Atypical chest pain History of paroxysmal AFib Valvular heart disease and status post aortic valve replacement (tissue type) Diabetes mellitus Hypertension Hyperlipidemia Cardiac suggestion for management: Managed on telemetry Follow-up electrolytes and kidney function tests and correct abnormalities Outpatient follow-up with patient's own straw hat brim raiser operator is advised As the patient has history of paroxysmal AFib, continuation of long-term full anticoagulation is advised (patient was on Eliquis as outpatient) Further evaluation and management depends on the above and clinical course A total of 55 minutes was spent reviewing the patient record, examining the patient, making a diagnostic and therapeutic plan, discussing this plan with medical personnel, following up on diagnostic studies and following the patient for clinical stability excluding any and all procedures. At least 50% of this time was spent in direct, [id number] contact. Thank you for allowing me to participate in this patient's care. Further recommendations will depend on patient's clinical course. Please do not hesitate to contact me if you have any questions or concerns. This medical document was created using electronic medical record system with [employer] dictation system. Although this document has been carefully reviewed, there may still be some phonetic and typographical errors. These areas are purely typographical due to the imperfection of the software programs, and do not reflect any compromise in the patient's medical care. Plan discussed with: Patient, Other (nurse) NIMESH AMARO MD Dec 17, 2024 06:42
[2024-12-17] MEDS ORDERED: APIX5TAB PO (10:47)
--- NOTE | 2024-12-17 10:48 | DVHDS2 ---
Discharge Summary Date of Admission Dec 14, 2024 at 21:26 Date of Discharge: Dec 17, 2024 Labs/Diagnostic Data: Laboratory Results Test 12/17/24 05:15 12/15/24 05:00 12/14/24 22:04 12/14/24 13:31 POC Glucose 142 mg/dl (70-106) White Blood Count 9.0 10^3/uL (4.4-10.8) Red Blood Count 5.10 10^6/uL (4.5-5.90) Hemoglobin 14.9 g/dL (13.5-17.5) Hematocrit 44.6 % (41.0-53.0) Mean Corpuscular Volume 87.4 fL (80.0-100.0) Mean Corpuscular Hemoglobin 29.1 pg (28.0-32.0) Mean Corpuscular Hemoglobin Concent 33.3 g/dL (32.0-36.0) Red Cell Distribution Width 15.9 % (11.8-14.3) Platelet Count 140 10^3/uL (140-450) Mean Platelet Volume 8.3 fL (6.9-10.8) Neutrophils (%) (Auto) 62.2 % (37.0-80.0) Lymphocytes (%) (Auto) 28.8 % (10.0-50.0) Monocytes (%) (Auto) 8.2 % (0.0-12.0) Eosinophils (%) (Auto) 0.4 % (0.0-7.0) Basophils (%) (Auto) 0.4 % (0.0-2.0) Neutrophils # (Auto) 5.6 10 ^3/uL (1.6-8.6) Lymphocytes # (Auto) 2.6 10 ^3/uL (0.4-5.4) Monocytes # (Auto) 0.7 10 ^3/uL (0-1.3) Eosinophils # (Auto) 0 10 ^3/uL (0-0.8) Basophils # (Auto) 0 10 ^3/uL (0-0.2) Nucleated Red Blood Cells 0.1 % Urine Color Light-yellow (Yellow) Urine Clarity Clear (Clear) Urine pH 5.5 (5.0-9.0) Urine Specific [place] 1.032 (1.001-1.035) Urine Protein Negative (Negative) Urine Ketones Negative (Negative) Urine Blood Negative /uL (Negative) Urine Nitrite Negative (Negative) Urine Bilirubin Negative (Negative) Urine Urobilinogen Normal mg/dL (Negative) Urine Leukocyte Esterase Negative /uL (Negative) Urine RBC 1 /hpf (0 - 3) Urine Microscopic WBC 2 /HPF (0-3) Urine Squamous Epithelial Cells Few /hpf (<5) Urine Bacteria None seen /hpf (None Seen) Urine Glucose 4+ mg/dL (Normal) Sodium Level 140 mmol/L (136-145) Potassium Level 3.6 mmol/L (3.5-5.1) Chloride Level 107 mmol/L (98-107) Carbon Dioxide Level 24 mmol/L (20-31) Anion Gap 9 (5-15) Blood Urea Nitrogen 20 mg/dL (9-23) Creatinine 1.13 mg/dL (0.700-1.30) Glomerular Filtration Rate Calc 72 mL/min (>90) BUN/Creatinine Ratio 17.7 (10.0-20.0) Serum Glucose 163 mg/dL (74-106) Calcium Level 10.0 mg/dL (8.7-10.4) Total Bilirubin 0.6 mg/dL (0.2-1.0) Aspartate Amino Transferase (AST) 13 U/L (13-40) Alanine Aminotransferase (ALT) 21 U/L (7-40) Alkaline Phosphatase 152 U/L (46-116) Total Protein 7.0 g/dL (5.7-8.2) Albumin 4.3 g/dL (3.2-4.8) Urine Opiates Screen Neg (NEGATIVE) Urine Fentanyl Screen Neg (NEGATIVE) Urine Barbiturates Screen Neg (NEGATIVE) Urine Phencyclidine Screen Neg (NEGATIVE) Urine Amphetamines Screen Neg (NEGATIVE) Urine Benzodiazepines Screen Neg (NEGATIVE) Urine Cocaine Screen Neg (NEGATIVE) Urine Cannabinoids Screen Neg (NEGATIVE) Hemoglobin A1c 7.6 % A1C (<5.7) Triglycerides Level 62 mg/dL (< 150) Cholesterol Level 114 mg/dL (< 200) LDL Cholesterol 55 mg/dL (< 100) HDL Cholesterol 40 mg/dL (40-59) D-Dimer, Quantitative 0.30 mg/L FEU (0.0-0.49) Phosphorus Level 3.2 mg/dL (2.4-5.1) Magnesium Level 2.1 mg/dL (1.6-2.6) Troponin I High Sensitivity 13 ng/L (</=54) B-Type Natriuretic Peptide 79.48 pg/mL (0-100) Other Laboratory Tests 12/15/24 05:00 Brief Hx & Hospital Course: Carmelo Manuel is a 64-year-old male patient who presents to the ED with chief complaint of intermittent dyspnea in functional class IV which started today at noon. Patient also complaint of left arm pain in bilateral hand numbness for the past few weeks and also complains of limiting functional class for the past two months (he says that he can not move alone anymore). He has been visiting the ED in multiple occasions, and was going to be evaluated by a lining finisher this , but due to his recurrent symptoms, it prompted his visit to the ED today. In the ED patient presented EKG with no ST elevation, sinus rhythm, with nonspecific intraventricular conduction delay, troponin x3 negative. Denies palpitation, syncope, chest pain, nausea, vomiting, diarrhea, abdominal pain, constipation, bleeding, sick contacts, recent travel and other motor or sensory deficits. Past medical history: Hypertension, dyslipidemia, diabetes insulin dependent, paroxysmal atrial fibrillation (chads Vasc 3/has bled 2), biological aortic valve replacement in 2017, chronic kidney disease stage 2, asthma Surgical history: 2017 biological aortic valve replacement, coronary angiography in 2017 with no lesions per patient Family history: Father of [place], mother of cancer (unknown type) Social history: Lives in [place] alone. Ex ethanol abuse, stopped three years ago. Denies current tobacco, alcohol and other drug abuse. Allergies: Penicillin Home medication: Apixaban 5 mg p.o. b.i.d., metoprolol 25 mg p.o. b.i.d., atorvastatin 40 mg p.o. daily, doxazosin, montelukast 10 mg p.o. daily, omeprazole 40 mg p.o. daily, enalapril 20 mg p.o. b.i.d., Jardiance 10 mg p.o. daily Patient was admitted December 14, 2024 for chest tightness and shortness of breath with patient complaining of palpitations. Patient has a history of valve replacement. Patient was seen by cardiology. Patient was monitored on EKG. Per lining finisher patient is on a beta melvin. Heart rate has been in the 50s and 60s. Patient was instructed to follow up with his outpatient lining finisher, and he will most likely need an outpatient Holter monitor to monitor his heart rhythm. Patient instructed to also follow up with his PCP in one week. There were no complaints or new complaints upon discharge, all questions and concerns were answered. Patient was advised to return to the ER or call 911 if any headaches, dizziness, shortness of breath, chest pain, bleeding, fevers, or worsening of medical condition. Patient/Family was counseled about treatment plan, medications, possible side effects, patientverbalized understanding. All questions were answered to the best of my ability. The patient symptoms improved and they are okay to be DC. Condition at Discharge: Stable Final Diagnosis/Problems List Unstable angina (MARY: 2, IFRAH: 95 points) Questionable symptomatic severe aortic stenosis Paroxysmal atrial fibrillation (chads Vasc 3/has bled 2) with secondary hypercoagulability state Chronic kidney disease stage 2 Asthma Hypertension Dyslipidemia Diabetes insulin dependent - uncontrolled (hemoglobin A1c 7.6%) History of biological aortic valve replacement Discharge Disposition: Home Discharge Instruct/Medications Diet: Cardiac 2g Na,low cholest Activity: No Restrictions, As Tolerated Follow Up/Referral: pcp 1 week f/u outpt lining finisher Medications: continue home meds Discharge Statement: "Patient was advised to return to the ER or call 911 if any headaches, dizziness, shortness of breath, chest pain, abdominal pain, bleeding, fevers, or worsening of medical condition. Patient was counseled about treatment plan, medications, possible side effects, patientverbalized understanding. All questions were answered to the best of my ability. This discharge took greater then 30 minutes in planning, reviewing documentation, counseling the patient, and discussing with other team members." ASSESSMENT ASSESSMENT Assessment chest tightness, unstable angina SAMEER SANDOVAL NP Dec 17, 2024 10:48
== END 2024-12-17 15:24 | disposition home or self-care (01) | DRG 311 ==
LOC: ER 13:05 → OVERFLOW 21:26 → TELE-WESTW 12-15 21:22
PROVIDERS: ADMIT Nurse Practitioner; ATTEND Nurse Practitioner Family
DX: I20.0 Unstable angina (principal); E11.65 Type 2 diabetes mellitus with hyperglycemia; E11.22 Type 2 diabetes mellitus with diabetic chronic kidney disease; N18.2 Chronic kidney disease, stage 2 (mild); I48.0 Paroxysmal atrial fibrillation; J45.909 Unspecified asthma, uncomplicated; I12.9 Hypertensive chronic kidney disease with stage 1 through stage 4 chronic kidney disease, or unspecified chronic kidney disease; E78.5 Hyperlipidemia, unspecified; E66.01 Morbid (severe) obesity due to excess calories; I08.3 Combined rheumatic disorders of mitral, aortic and tricuspid valves; Z95.2 Presence of prosthetic heart valve; Z79.899 Other long term (current) drug therapy; Z79.4 Long term (current) use of insulin; Z82.49 Family history of ischemic heart disease and other diseases of the circulatory system; Z80.9 Family history of malignant neoplasm, unspecified; Z79.01 Long term (current) use of anticoagulants; Z68.33 Body mass index [BMI] 33.0-33.9, adult
CPT/HCPCS: 36415; 71045; 80048; 80053; 80061; 80307; 81001; 82962; 83036; 83735; 83880; 84100; 84484; 85025; 85379; 93005; 93306; 94640; G0378; J1815; J2470